=== PATIENT | male | born 1945 | race Caucasian/White ===

== ENCOUNTER 2018-10-01 13:29 | Day surgery (SDC) | payer MEDICARE ==
[~2018-10-01] VITALS: Ht 175.3 cm; Wt 99.7 kg
[2018-10-01] MEDS ORDERED: FENTANYL PF 100 MCG/2ML ONE (13:37)
[2018-10-01] MEDS ORDERED: MIDAZOLAM 1 MG/ML, 2ML ONE (13:37)
[2018-10-01] MEDS ORDERED: LACTATED RINGERS 1,000 ML IV SCH (13:53)
[2018-10-01] MEDS ORDERED: ACETAMINOPHEN 500 MG TABLET PO ONE (14:00)
[2018-10-01] MEDS ORDERED: ONDANSETRON ODT 8 MG PO ONE (14:00)
[2018-10-01 14:03] VITALS: BP 150/77
[2018-10-01] MEDS ORDERED: TEST1.25 TP (14:16)
[2018-10-01] MEDS ORDERED: BUPIVACAINE/PF-EPI 0.5% 1:200K ONE (14:40)
[2018-10-01] MEDS ORDERED: BUPIVACAINE/PF 0.5% ONE (15:27)
[2018-10-01] MEDS ORDERED: LIDOCAINE-MPF 2% ,5ML ONE (15:27)
[2018-10-01] MEDS ORDERED: PROPOFOL 10 MG/ML, 20ML ONE (15:29)
[2018-10-01] MEDS ORDERED: CEFAZOLIN 1,000 MG ONE (15:29)
[2018-10-01] MEDS ORDERED: DEXAMETHASONE 4 MG/ML, 1ML ONE (15:29)
[2018-10-01] MEDS ORDERED: PROMETHAZINE 25 MG/ML, 1ML IV PRN (15:30)
[2018-10-01] MEDS ORDERED: HYDROmorphone 2 MG/ML, 1ML IVPush PRN (15:30)
[2018-10-01] MEDS ORDERED: OXYcodone 5 MG/5 ML ORAL.SOL UDC PO PRN (15:30)
[2018-10-01] MEDS ORDERED: hydrALAzine 20 MG/ML, 1ML IV PRN (15:30)
[2018-10-01] MEDS ORDERED: MIDAZOLAM 1 MG/ML, 2ML IV PRN (15:30)
[2018-10-01] MEDS ORDERED: FENTANYL PF 100 MCG/2ML IV PRN (15:30)
[2018-10-01] MEDS ORDERED: ONDANSETRON 2MG/ML, 2ML IV PRN (15:30)
[2018-10-01] MEDS ORDERED: ALBUTEROL/IPRATROPIUM 2.5MG/0.5MG, 3 ML NPPB PRN (15:30)
== END 2018-10-01 17:30 | disposition home or self-care (01) ==
LOC: OR 13:29
PROVIDERS: ATTEND Orthopaedic Surgery
DX: S46.212A Strain of muscle, fascia and tendon of other parts of biceps, left arm, initial encounter (principal); K21.9 Gastro-esophageal reflux disease without esophagitis; Y99.0 Civilian activity done for income or pay; Y93.89 Activity, other specified; Y92.89 Other specified places as the place of occurrence of the external cause; Z87.39 Personal history of other diseases of the musculoskeletal system and connective tissue
CPT/HCPCS: 24342; 93005; C1713; J0690; J1100; J2250; J2704; J3010; J3490; J7120; Q0162

== ENCOUNTER → 2021-03-29 | Outpatient (CLI) | payer MEDICARE ==
[~2021-03-29] MED LIST: REGADENOSON 0.4 MG/5 ML SYRINGE ONE; TEST1.25 TP
== END | disposition home or self-care (01) ==
LOC: CFH 06:42
PROVIDERS: ATTEND Internal Medicine Cardiovascular Disease
DX: I08.3 Combined rheumatic disorders of mitral, aortic and tricuspid valves (principal); I45.19 Other right bundle-branch block
CPT/HCPCS: 78452; 93017; 93306; 93356; A9502; J2785